=== PATIENT | female | born 1995 | race Caucasian/White ===

== ENCOUNTER 2019-04-23 09:54 | Emergency (ER) | payer BC ==
[~2019-04-23] VITALS: Ht 170.2 cm; Wt 68.0 kg
[2019-04-23] MEDS ORDERED: IOHEXOL 300 MG/ML 75 ML VIAL. IV ONE (10:30)
[2019-04-23] MEDS ORDERED: CONTRAST GIVEN MC PRN (10:45)
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
[2019-04-23 12:09] LABS: BASO % 0 % (0-3); EOS # 0.2 x10^3/uL (0.0-0.7); EOS % 2 % (0-3); HEMATOCRIT 41.5 % (36.0-47.0); HEMOGLOBIN 13.7 g/dL (12.0-15.5); LYMPH # 2.8 x10^3/uL (1.0-4.8); LYMPH % 30 % (24-48); MEAN CORPUSCULAR HEMOGLOBIN 29 pg (25-35); MEAN CORPUSCULAR HGB CONC 33 g/dL (31-37); MEAN CORPUSCULAR VOLUME 86 fL (79-100); MONO # 0.8 x10^3/uL (0.0-1.1); MONO % 8 % (0-9); NEUT # 5.6 x10^3uL (1.8-7.7); NEUT % 60 % (31-73); PLATELET COUNT 258 x10^3/uL (140-400); WHITE BLOOD COUNT 9.5 x10^3/uL (4.0-11.0)
[2019-04-23 12:15] LABS: ALBUMIN 3.5 g/dL (3.4-5.0); ALBUMIN/GLOBULIN RATIO 0.7 (1.0-1.7); CALCIUM 9.2 mg/dL (8.5-10.1); CREATININE 0.6 mg/dL (0.6-1.0); POTASSIUM 3.8 mmol/L (3.5-5.1); TOTAL BILIRUBIN 0.4 mg/dL (0.2-1.0); TOTAL PROTEIN 8.2 g/dL (6.4-8.2)
[2019-04-23 12:33] LABS: AMORPHOUS SEDIMENT,UR PRESENT /HPF; BACTERIA,URINE FEW /HPF (0-FEW); BILIRUBIN,URINE NEG (NEG); CLARITY,URINE HAZY; COLOR,URINE YELLOW; GLUCOSE,URINE NEG (NEG); NITRITE,URINE NEG (NEG); RBC,URINE 20-40 /HPF (0-2); SQUAMOUS EPITHELIAL CELL,UR OCC /LPF; UROBILINOGEN,URINE 2 mg/dL (0.2 mg/dL)
[2019-04-23 12:52] VITALS: BP 127/81
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
[2019-04-23] MEDS ORDERED: TRAM50TA PO (13:23)
[2019-04-23] MEDS ORDERED: MELO7.5T29 PO (13:23)
== END 2019-04-23 13:32 | disposition home or self-care (01) ==
LOC: ER 09:54
DX: T74.21XA Adult sexual abuse, confirmed, initial encounter (principal); N89.8 Other specified noninflammatory disorders of vagina; F17.210 Nicotine dependence, cigarettes, uncomplicated; Z98.890 Other specified postprocedural states; Z88.0 Allergy status to penicillin
CPT/HCPCS: 36415; 74177; 80053; 81001; 81025; 83690; 85025; 87086; 87491; 87591; 99285; Q0111; Q9967; 87186

== ENCOUNTER 2020-11-12 13:15 | Emergency (ER) | payer BC ==
[~2020-11-12] VITALS: Ht 165.1 cm; Wt 81.4 kg
[~2020-11-12 13:15] MED LIST: MELO7.5T29 PO; TRAM50TA PO
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
[2020-11-12 13:36] VITALS: BP 121/66
[2020-11-12] MEDS ORDERED: IOHEXOL 300 MG/ML 75 ML VIAL. IV ONE (13:45)
[2020-11-12] MEDS ORDERED: CONTRAST GIVEN. MC PRN (13:45)
[2020-11-12] MEDS ORDERED: IV NORMAL SALINE 1,000ML 1,000 ML IV ONE (14:15)
[2020-11-12 14:28] LABS: BASO % 1 % (0-3); EOS % 0 % (0-3); HEMATOCRIT 33.2 % (36.0-47.0); HEMOGLOBIN 10.6 g/dL (12.0-15.5); LYMPH # 2.3 x10^3/uL (1.0-4.8); LYMPH % 23 % (24-48); MEAN CORPUSCULAR HEMOGLOBIN 24 pg (25-35); MEAN CORPUSCULAR HGB CONC 32 g/dL (31-37); MEAN CORPUSCULAR VOLUME 76 fL (79-100); MONO # 1.2 x10^3/uL (0.0-1.1); MONO % 12 % (0-9); NEUT # 6.3 x10^3uL (1.8-7.7); NEUT % 64 % (31-73); PLATELET COUNT 185 x10^3/uL (140-400); RED BLOOD COUNT 4.34 x10^6/uL (3.50-5.40); RED CELL DISTRIBUTION WIDTH 16.1 % (11.5-14.5); WHITE BLOOD COUNT 9.9 x10^3/uL (4.0-11.0)
[2020-11-12 14:41] LABS: CALCIUM 8.6 mg/dL (8.5-10.1); GFR 68.1; POTASSIUM 3.4 mmol/L (3.5-5.1)
[2020-11-12 14:46] LABS: ALBUMIN 3.1 g/dL (3.4-5.0); ALBUMIN/GLOBULIN RATIO 0.7 (1.0-1.7); TOTAL BILIRUBIN 0.8 mg/dL (0.2-1.0); TOTAL PROTEIN 7.5 g/dL (6.4-8.2)
--- NOTE | 2020-11-12 14:52 | RAD ---
CT abdomen pelvis with contrast dated 11/12/2020. No comparison available. Clinical data indication: Left lower quadrant pain. TECHNIQUE: Contiguous axial imaging the M pelvis performed after the administration of 75 cc Omnipaque 300. One or more of the following individualized dose reduction techniques were utilized for this examinat ion: 1. Automated exposure control 2. Adjustment of the mA and/or kV according to patient size 3. Use of iterative reconstruction technique. FINDINGS: Limited images of lung bases are clear. Heart size within normal limits. No pleural or pericardial ef fusion. Liver, spleen, pancreas, adrenal glands unremarkable. There is vague areas of striated low density al noel the cortical medullary junctions of each kidney. Largest is located at the left kidney upper pole and best seen on coronal images 37 through 43. No stone or hydronephrosis. No perinephric fluid shukri ection. Unopacified GI tract normal in caliber and contour. No bowel wall thickening. Appendix normal in sarah nelda. No ascites or lymphadenopathy. Abdominal aorta normal in caliber. Images of pelvis show nondistended urinary bladder. Uterus and adnexa are unremarkable. No free fluid or pelvic lymphadenopathy. Questionable mild wall thickening of the urinary bladder. Bone windows show no acute findings. IMPRESSION: 1. There is some vague low density along the cortical medullary junctions of each kidney with more fo giuseppe area of low density at the upper pole left kidney. Findings are nonspecific but could be related to pyelonephritis. Correlate with urinalysis. Follow-up imaging may be warranted to ensure resolution . 2. Mild wall thickening of the urinary bladder. Consider acute or chronic cystitis. 3. Otherwise no acute findings. Normal appendix. Electronically signed by: Royer Kramer MD (11/12/2020 2:50 PM) [id number]
[2020-11-12 16:12] LABS: BILIRUBIN,URINE NEG (NEG); CLARITY,URINE CLEAR; COLOR,URINE YELLOW; GLUCOSE,URINE NEG (NEG)
[2020-11-12 16:13] LABS: NITRITE,URINE NEG (NEG)
[2020-11-12 16:15] LABS: BACTERIA,URINE 0 /HPF (0-FEW); SQUAMOUS EPITHELIAL CELL,UR OCC /LPF
== END 2020-11-12 16:40 | disposition home or self-care (01) ==
LOC: ER 13:15
DX: R10.32 Left lower quadrant pain (principal); F17.210 Nicotine dependence, cigarettes, uncomplicated; Z98.890 Other specified postprocedural states; Z88.0 Allergy status to penicillin
CPT/HCPCS: 36415; 74177; 80053; 81001; 85025; 87086; 96360; 99285; J7030